=== PATIENT | female | born 1990 | race Caucasian/White ===

== ENCOUNTER 2017-12-08 06:43 | Inpatient (IN) | payer BC ==
[2017-12-08] MEDS ORDERED: CALCIUM CARBONATE PO PRN (07:45)
[2017-12-08] MEDS ORDERED: Calcium Carbonate 500 MG Tab.Chew PO PRN (07:47)
[2017-12-08] MEDS ORDERED: Misoprostol 50 MCG (1/2 of 100 MCG) Tab VAG ONE ×2 (07:55→12:15)
[2017-12-08] MEDS ORDERED: fentaNYL 100 MCG/2 ML SDV IVPUSH PRN (08:41)
[2017-12-08] MEDS ORDERED: Acetaminophen 325 MG Tab PO PRN (08:41)
[2017-12-08] MEDS ORDERED: Sodium Chloride 0.9% 10 ML Syringe FLUSH PRN (08:41)
[2017-12-08] MEDS ORDERED: Ondansetron 4 MG Tab.DIS PO PRN (08:41)
--- NOTE | 2017-12-08 08:51 | PCM.LDHP ---
L&D History of Present Illness - General Date of Service: 12/08/17 (Induction) Admit Problem/Dx: Patient Status Order with Admit Dx/Problem 12/08/17 08:41 Patient Status [ADT] Routine Admission Diagnosis/Problem Admission Diagnosis/Problem Source of Information: Patient History Limitations: Reports: No Limitations - History of Present Illness Introduction:: This 27 year old who is 40 weeks gestation presents for elective induction. Currently having contractions every 7 minutes. reactive NST. Lab: HIV neg ABO B pos GBS neg Rubella immune Timing/Duration: Reports: minutes: (7) Location, : Reports: Abdomen Severity: Mild Improves with: Reports: None Worsens with: Reports: None - Related Data Allergies/Adverse Reactions: Allergies Allergy/AdvReac Type Severity Reaction Status Date / Time kedar Allergy Rash Uncoded 12/08/17 07:30 Home Medications: Home Meds Calcium Carbonate [Tums] 1 tab PO ASDIRECTED PRN 12/08/17 [History] Voy461/FA/Omega3/Dha/Fish Oil [ Gummies] 1 tab PO DAILY 12/08/17 [ History] Past Medical History SUPPORT STAFF History: Reports: : 2 Para: 1 LMP (Approximate): (ESTER 12/08/17) Social & Family History - Tobacco Use Smoking Status *Q: Never Smoker Second Hand Smoke Exposure: No - Caffeine Use Caffeine Use: Reports: Coffee - Recreational Drug Use Recreational Drug Use: No H&P Review of Systems - Review of Systems: Review Of Systems: See Below General: Reports: No Symptoms HEENT: Reports: No Symptoms Pulmonary: Reports: No Symptoms Cardiovascular: Reports: No Symptoms Gastrointestinal: Reports: No Symptoms Genitourinary: Reports: No Symptoms Musculoskeletal: Reports: No Symptoms Skin: Reports: No Symptoms Psychiatric: Reports: No Symptoms Neurological: Reports: No Symptoms Hematologic/Lymphatic: Reports: No Symptoms Immunologic: Reports: No Symptoms L&D Exam - Exam Exam: See Below - Vital Signs Weight: 210 lb - OB Specific Contraction Intensity: Mild Movement: Active Heart Tones: Present Heart Tones per Min: 140 Heart Rate (FHR) Variability: Moderate (6-25 bmp) Presentation: Vertex Estimated Weight: 8 pounds - Allison Score Allison Score Cervix Position: Posterior Allison Score Consistency: Soft Allison Score Effacement: 51-70% Allison Score Dilation: Closed Allison Score 's Station: -3 Allison Score Total: 4 - Exam General: Alert, Oriented HEENT: PERRLA, Conjunctiva Clear, EACs Clear, EOMI, Hearing Intact, Mucosa Moist & [place], Nares Patent, Normal Nasal Septum, Posterior Pharynx Clear, TMs Clear Neck: Supple, Trachea Midline Lungs: Clear to Auscultation, Normal Respiratory Effort Cardiovascular: Regular Rate, Regular Rhythm GI/Abdominal Exam: Normal Bowel Sounds, Soft, Non-Tender, No Organomegaly, No Distention, No Abnormal Bruit, No Mass, Pelvis Stable Rectal Exam: Normal Exam, Normal Rectal Tone Genitourinary: Normal external exam, Normal bimanual exam, Normal speculum exam Back Exam: Normal Inspection, Full Range of Motion Extremities: Normal Inspection, Normal Range of Motion, Non-Tender, No Pedal Edema, Normal Capillary Refill Skin: Warm, Dry, Intact Neurological: Cranial Nerves Intact, Reflexes Equal Bilateral Psychiatric: Alert, Normal Affect, Normal Mood - Patient Data Lab Results Last 24 hrs: Laboratory Results - last 24 hr 12/08/17 Range/Units 07:53 WBC 13.2 H (4.5-11.0) K/uL RBC 4.20 (3.30-5.50) M/uL Hgb 12.8 (12.0-15.0) g/dL Hct 38.6 (36.0-48.0) % MCV 92 (80-98) fL MCH 31 (27-31) pg MCHC 33 (32-36) % Plt Count 234 (150-400) K/uL Result Diagrams: 12/08/17 07:53 - Problem List (1) Elective induction of labor planned SNOMED Code(s): 152365705 ICD Code: BUB2829 - Status: Acute Current Visit: Yes (2) SNOMED Code(s): 70060581 ICD Code: Z34.90 - ENCNTR FOR SUPRVSN OF NORMAL , UNSP, UNSP TRIMESTER Status: Acute Current Visit: Yes Qualifiers: Weeks of gestation: 40 weeks Qualified Code(s): Z3A.40 - 40 weeks gestation of Problem List Initiated/Reviewed/Updated: Yes Orders Last 24hrs: Active Orders 24 hr Category Date Time Status Patient Status [ADT] Routine ADT 12/08/17 08:41 Ordered Antiembolic Devices [RC] .Routine Care 12/08/17 08:43 Ordered Communication Order [RC] ASDIRECTED Care 12/08/17 08:41 Ordered Heart Tones [RC] PER UNIT ROUTINE Care 12/08/17 08:41 Ordered May Shower [RC] ASDIRECTED Care 12/08/17 08:41 Ordered Notify Provider Vital Signs [RC] PRN Care 12/08/17 08:41 Ordered Notify Provider [RC] PRN Care 12/08/17 08:41 Ordered Up ad Ailyn [RC] ASDIRECTED Care 12/08/17 08:41 Ordered VTE/DVT Education [RC] Click to Edit Care 12/08/17 08:43 Ordered Vital Signs [RC] PER UNIT ROUTINE Care 12/08/17 08:41 Ordered Clear Liquid Diet [DIET] Diet 12/08/17 Lunch Ordered Regular Diet [DIET] Diet 12/08/17 Breakfast Active UA W/MICROSCOPIC [URIN] Routine Lab 12/08/17 07:43 Ordered Acetaminophen [Tylenol] Med 12/08/17 08:41 Ordered 650 mg PO Q4H PRN Calcium Carbonate [Tums] Med 12/08/17 07:47 Active 500 mg PO ASDIRECTED PRN Ondansetron [Zofran ODT] Med 12/08/17 08:41 Ordered 4 mg PO Q4H PRN Oxytocin/Normal Saline [Pitocin in NS 20 Units/1,000 ML Med 12/08/17 08:45 Ordered ] 20 unit in 1,000 ml IV ONETIME Vit with Ca/FA/Iron [ Plus Iron] Med 12/08/17 09:00 Active 1 each PO DAILY Sodium Chloride 0.9% [Saline Flush] Med 12/08/17 08:41 Ordered 10 ml FLUSH ASDIRECTED PRN fentaNYL [Sublimaze] Med 12/08/17 08:41 Ordered 100 mcg IVPUSH Q1H PRN DVT/VTE Prophylaxis Reflex [OM.PC] Routine Oth 12/08/17 08:41 Ordered Saline Lock Insert [OM.PC] Routine Oth 12/08/17 08:41 Ordered Resuscitation Status Routine Resus Stat 12/08/17 08:41 Ordered Medication Orders Acetaminophen (Tylenol) 650 mg PO Q4H PRN PRN Reason: Pain (Mild 1-3) and fever Calcium Carbonate/Glycine (Tums) 500 mg PO ASDIRECTED PRN PRN Reason: HEARTBURN Fentanyl (Sublimaze) 100 mcg IVPUSH Q1H PRN PRN Reason: Pain (moderate 4-6) Oxytocin/Sodium Chloride (Pitocin In Ns 20 Units/1,000 Ml) 20 unit in 1,000 mls @ 999 mls/hr IV ONETIME ONE PRN Reason: Protocol Stop: 12/08/17 09:45 Ondansetron HCl (Zofran Odt) 4 mg PO Q4H PRN PRN Reason: Nausea/Vomiting Prenat Multivit/Foundation Relations Manager/Iron/Folic Ac ( Plus Iron) 1 each PO DAILY RADHA Sodium Chloride (Saline Flush) 10 ml FLUSH ASDIRECTED PRN PRN Reason: Keep Vein Open Assessment/Plan Comment:: 12/08/17 27 year , 40 weeks elective induction. Misoprostol 50 mcg placed at 0815 CE FT/50/-3. bishops score 4 HGB 12.8 PLT 234 requests epidural for active labor Plan reassess at noon monitor for signs for labor up and about after required monitoring finished.
[2017-12-08] MEDS ORDERED: FISH OIL PO SCH (09:00)
[2017-12-08] MEDS ORDERED: OMEGA3 PO SCH (09:00)
[2017-12-08] MEDS ORDERED: DHA PO SCH (09:00)
[2017-12-08] MEDS ORDERED: [UNRECOGNIZED DRUG - OTHER] PO SCH (09:00)
[2017-12-08] MEDS: Prenatal Multivitamin with Calcium/Folic Acid/Iron Tab PO SCH (11:01)
--- NOTE | 2017-12-08 12:29 | PCM.PNLD ---
Labor Progress Note - VS & Meds Vital Signs: Last Vital Signs Temp 98.0 F 12/08/17 11:00 Pulse 87 12/08/17 11:00 Resp 16 12/08/17 11:00 BP 118/76 12/08/17 11:00 Pulse Ox 95 12/08/17 11:00 Active Medications: Current Medications Acetaminophen (Tylenol) 650 mg PO Q4H PRN PRN Reason: Pain (Mild 1-3) and fever Calcium Carbonate/Glycine (Tums) 500 mg PO ASDIRECTED PRN PRN Reason: HEARTBURN Fentanyl (Sublimaze) 100 mcg IVPUSH Q1H PRN PRN Reason: Pain (moderate 4-6) Ondansetron HCl (Zofran Odt) 4 mg PO Q4H PRN PRN Reason: Nausea/Vomiting Prenat Multivit/Wind Energy Engineer/Iron/Folic Ac ( Plus Iron) 1 each PO DAILY RADHA Last Admin: 12/08/17 11:01 Dose: 1 each Sodium Chloride (Saline Flush) 10 ml FLUSH ASDIRECTED PRN PRN Reason: Keep Vein Open Discontinued Medications Oxytocin/Sodium Chloride (Pitocin In Ns 20 Units/1,000 Ml) 20 unit in 1,000 mls @ 999 mls/hr IV ONETIME ONE PRN Reason: Protocol Stop: 12/08/17 09:45 Misoprostol (Cytotec) 50 mcg VAG ONETIME ONE Stop: 12/08/17 07:56 Last Admin: 12/08/17 08:11 Dose: 50 mcg Misoprostol (Cytotec) 50 mcg VAG ONETIME ONE Stop: 12/08/17 12:16 - Uterine Contractions Uterine Monitoring Mode: External [place] Contraction Frequency (min): 2--5 Contraction Duration (sec): 50-70 Contraction Intensity: Mild Uterine Resting Tone: Soft - Monitoring Monitor Mode: External Ultrasound Heart Rate (FHR) Per Doppler: 140 Heart Rate (FHR) Variability: Moderate (6-25 bmp) Accelerations: Present, 15x15 Decelerations: None Strip Review: Category I - Vaginal Exam Dilation (cm): 3 Effacement (Percent): 50 Station: Ballotable Cervical Position: Midposition Sterile Vaginal Exam Performed By: Sheree Montana Vaginal Exam Comment: cervixcal change since this morning, bloody show - Labor Progress (Free Text) Labor Progress: tad regularly. CE: /-1 Bulging bag present. latent labor. monitor for active labor up and about Arom later this afternoon Plan for vaginal delivery
[2017-12-08] MEDS ORDERED: Lactated Ringers 1,000 ML IV SCH ×2 (14:30→15:35)
--- NOTE | 2017-12-08 15:48 | PCM.PNLD ---
Labor Progress Note - VS & Meds Vital Signs: Last Vital Signs Temp 98.6 F 12/08/17 12:30 Pulse 78 12/08/17 15:29 Resp 16 12/08/17 12:30 BP 129/71 12/08/17 12:30 Pulse Ox 98 12/08/17 15:29 Active Medications: Current Medications Acetaminophen (Tylenol) 650 mg PO Q4H PRN PRN Reason: Pain (Mild 1-3) and fever Calcium Carbonate/Glycine (Tums) 500 mg PO ASDIRECTED PRN PRN Reason: HEARTBURN Fentanyl (Sublimaze) 100 mcg IVPUSH Q1H PRN PRN Reason: Pain (moderate 4-6) Lactated Ringer's (Ringers, Lactated) 1,000 mls @ 999 mls/hr IV BOLUS [facility] Last Admin: 12/08/17 14:35 Dose: 999 mls/hr Lactated Ringer's (Ringers, Lactated) 1,000 mls @ 125 mls/hr IV ASDIRECTED [facility] Last Admin: 12/08/17 15:36 Dose: 125 mls/hr Ondansetron HCl (Zofran Odt) 4 mg PO Q4H PRN PRN Reason: Nausea/Vomiting Prenat Multivit/Mower/Iron/Folic Ac ( Plus Iron) 1 each PO DAILY [facility] Last Admin: 12/08/17 11:01 Dose: 1 each Sodium Chloride (Saline Flush) 10 ml FLUSH ASDIRECTED PRN PRN Reason: Keep Vein Open Discontinued Medications Oxytocin/Sodium Chloride (Pitocin In Ns 20 Units/1,000 Ml) 20 unit in 1,000 mls @ 999 mls/hr IV ONETIME ONE PRN Reason: Protocol Stop: 12/08/17 09:45 Misoprostol (Cytotec) 50 mcg VAG ONETIME ONE Stop: 12/08/17 07:56 Last Admin: 12/08/17 08:11 Dose: 50 mcg Misoprostol (Cytotec) 50 mcg VAG ONETIME ONE Stop: 12/08/17 12:16 - Uterine Contractions Uterine Monitoring Mode: External [place] Contraction Frequency (min): 1.5-3.5 Contraction Duration (sec): 50-100 Contraction Intensity: Moderate Uterine Resting Tone: Soft - Monitoring Monitor Mode: External Ultrasound Heart Rate (FHR) Per Doppler: 140 Heart Rate (FHR) Variability: Moderate (6-25 bmp) Accelerations: Present, 15x15 Decelerations: None Strip Review: Category I - Vaginal Exam Dilation (cm): 4 Effacement (Percent): 75 Station: Ballotable Cervical Position: Anterior Sterile Vaginal Exam Performed By: Sheree Montana Vaginal Exam Comment: AROM 75/0 large amount clear fluid - Labor Progress (Free Text) Labor Progress: 12/08/17 tad every 2-3 minutes. doing well Epidural for pain management planning vaginal delivery
[2017-12-08] MEDS ORDERED: ePHEDrine 50 MG/ML SDV IVPUSH ONE (16:08)
[2017-12-08] MEDS ORDERED: Lactated Ringers 1,000 ML IV ONE (16:08)
[2017-12-08] MEDS ORDERED: Ropivacaine 100 ML ONE (17:27)
[2017-12-08] MEDS ORDERED: Naloxone 0.4 MG/ML SDV IVPUSH PRN (17:36)
[2017-12-08] MEDS ORDERED: ePHEDrine 50 MG/ML SDV IV PRN (17:36)
[2017-12-08] MEDS ORDERED: Ropivacaine 100 ML EPIDUR SCH (17:36)
--- NOTE | 2017-12-08 19:38 | ANES ---
DATE OF SERVICE: 12/08/2017 INDICATION: Anna is a 27-year-old female patient of Stefany Montana in our OB unit. She is in prolonged stage II labor and not failure to progress. #[id number]. Please refer to Stefany's note for diagnosis as well. DESCRIPTION OF THE PROCEDURE: Upon arrival, I was assessing the patient for labor epidural placement, found no contraindication in lab work and the patient's history. I discussed with her risks and benefits of the procedure. She was okay to proceed and consent was received. I had her seated at the edge of the bed. Betadine prep x3 to lumbar region. Sterile drape was placed. 1% lidocaine skin wheal as well as deep at the L3-4 region. A 17- gauge Touhy was placed to loss of resistance with ease. Negative CSF, negative heme, negative paresthesia. I inserted catheter to 13 cm and it was secured on her back. I placed a test dose of 3 mL of 1.5% lidocaine with 1:200,000 epinephrine. She tolerated that quite well. Please refer to nursing notes for vital signs and neuro status, which were unchanged and within normal limits. She had negative sequelae from test dose. I then dosed her with 12 mL of 0.2% ropivacaine and began infusion of that same 12 mL of ropivacaine an hour, again continued, and she tolerated the procedure quite well. I reported off to nurse as well as Stefany Montana. Spenser Harris CRNA /[id number]
[2017-12-08] MEDS ORDERED: Ibuprofen 200 MG Tab, 24 Tab Bulk Bottle PO PRN (20:22)
[2017-12-08] MEDS ORDERED: Acetaminophen 325 MG Tab, 50 Tab Bulk Bottle PO PRN (20:22)
[2017-12-08] MEDS ORDERED: Lanolin 100% Cream 40 GM Tube TOP PRN (20:22)
[2017-12-08] MEDS ORDERED: Acetaminophen/Codeine 300-30 MG Tab PO PRN (20:22)
--- NOTE | 2017-12-08 20:31 | PCM.DEL ---
L & D Note - General Info Date of Service: 12/08/17 Mother's Due Date: 12/08/17 - Delivery Note Labor: Induced by ARM Cervical Ripening Method: Misoprostil Delivery Outcome: Livebirth Delivery Method: Spontaneous Vaginal Delivery-Single Infant Delivery Mode: Spontaneous Presentation: Left Occiput Anterior (DARNELL) Nuchal Cord: Present (one time) Anesthesia Type: Epidural Amniotic Fluid Description: Clear Episiotomy Type: None Laceration: None Placenta: Intact, Expressed Cord: 3 Vessels Estimated Blood Loss: 0 Resuscitation Needed: No : Stimulated, Warmed, Gardner Used, Warmer Used Score 1 min: 8 Score 5 min: 9 Delivery Comments (Free Text/Narrative):: G2 now P2 27 year old female at 40w 0d delivered healthy baby girl DARNELL at 1959 via with nuchal cord times 1 with 3 cord vessel. Placenta delivered with uterine massage, pitocin, and gentle cord traction--intact. Baby girl with APGARs of 8 and 9, off for color, weighing 7lb 9oz and measuring 18.9inches. No lacerations of cervic, vagina, rectum, or perineum and no need for repair. EBL: 0. Induction Criteria - Allison Score Allison Score Dilation: 1-2 cm Allison Score Effacement: 40-50% Allison Score 's Station: -3 Allison Score Consistency: Medium Allison Score Cervix Position: Posterior Allison Score Total: 3 Allison Score Presenting Part: Reports: Cephalic - Induction Gestational Age >/= 39 wks: Yes Estimated Pelvis: Reports: Adequate Reassuring Monitoring Strip: Yes Absence of Tachy Systole: Yes - General Info Date of Service: 12/08/17 Admission Dx/Problem (Free Text): Patient Status Order with Admit Dx/Problem 12/08/17 08:41 Patient Status [ADT] Routine Admission Diagnosis/Problem Admission Diagnosis/Problem 20:32 Spontaneous vaginal delivery Functional Status: Reports: Pain Controlled - Review of Systems General: Reports: No Symptoms HEENT: Reports: No Symptoms Pulmonary: Reports: No Symptoms Cardiovascular: Reports: No Symptoms Gastrointestinal: Reports: No Symptoms Genitourinary: Reports: No Symptoms Musculoskeletal: Reports: Other (back pressure katey with contractions) Skin: Reports: No Symptoms Neurological: Reports: No Symptoms Psychiatric: Reports: No Symptoms - Patient Data Vitals - Most Recent: Last Vital Signs Temp 96.0 F 12/08/17 16:20 Pulse 79 12/08/17 17:58 Resp 18 12/08/17 17:47 BP 114/62 12/08/17 17:47 Pulse Ox 97 12/08/17 17:58 Weight - Most Recent: 209 lb 15.986 oz I&O - Last 24 Hours: Intake & Output 12/08/17 12/08/17 12/08/17 06:59 14:59 22:59 Intake Total 1000 Balance 1000 Lab Results Last 24 Hours: Laboratory Results - last 24 hr 12/08/17 12/08/17 12/08/17 Range/Units 07:43 07:53 13:04 WBC 13.2 H (4.5-11.0) K/uL RBC 4.20 (3.30-5.50) M/uL Hgb 12.8 (12.0-15.0) g/dL Hct 38.6 (36.0-48.0) % MCV 92 (80-98) fL MCH 31 (27-31) pg MCHC 33 (32-36) % Plt Count 234 (150-400) K/uL Urine Color Yellow Urine Appearance Slightly cloudy Urine pH 7.0 (4.5-8.0) Ur Specific [place] 1.010 (1.008-1.030) Urine Protein Negative (NEGATIVE) mg/dL Urine Glucose (UA) Normal (NEGATIVE) mg/dL Urine Ketones Negative (NEGATIVE) mg/dL Urine Occult Blood Large (NEGATIVE) Urine Nitrite Negative (NEGATIVE) Urine Bilirubin Negative (NEGATIVE) Urine Urobilinogen Normal (NORMAL) mg/dL Ur Leukocyte Esterase Negative (NEGATIVE) Urine RBC 5-10 H (0-5) Urine WBC 0-5 (0-5) Ur Epithelial Cells Moderate Amorphous Sediment Not seen Urine Bacteria Few Urine Mucus Not seen Urine Opiates Screen Negative (NEGATIVE) Ur Oxycodone Screen Negative (NEGATIVE) Urine Methadone Screen Negative (NEGATIVE) Ur Propoxyphene Screen Negative (NEGATIVE) Ur Barbiturates Screen Negative (NEGATIVE) Ur Tricyclics Screen Negative (NEGATIVE) Ur Phencyclidine Scrn Negative (NEGATIVE) Ur Amphetamine Screen Negative (NEGATIVE) U Methamphetamines Scrn Negative (NEGATIVE) Urine MDMA Screen Negative (NEGATIVE) U Benzodiazepines Scrn Negative (NEGATIVE) U Cocaine Metab Screen Negative (NEGATIVE) U Marijuana (THC) Screen Negative (NEGATIVE) Med Orders - Current: Current Medications Acetaminophen (Tylenol) 650 mg PO Q4H PRN PRN Reason: Pain (Mild 1-3) and fever Acetaminophen (Tylenol Bulk Bottle) 325 mg PO Q4H PRN PRN Reason: Pain Calcium Carbonate/Glycine (Tums) 500 mg PO ASDIRECTED PRN PRN Reason: HEARTBURN Ephedrine Sulfate (Ephedrine Sulfate) 5 - 10 mg IV ASDIRECTED PRN PRN Reason: Systolic BP less than 100 Fentanyl (Sublimaze) 100 mcg IVPUSH Q1H PRN PRN Reason: Pain (moderate 4-6) Lactated Ringer's (Ringers, Lactated) 1,000 mls @ 999 mls/hr IV BOLUS [facility] Last Admin: 12/08/17 14:35 Dose: 999 mls/hr Lactated Ringer's (Ringers, Lactated) 1,000 mls @ 125 mls/hr IV ASDIRECTED [facility] Last Admin: 12/08/17 15:36 Dose: 125 mls/hr Ropivacaine (Naropin 0.2%) 100 mls @ 0 mls/hr EPIDUR ASDIRECTED RADHA; Titrate PRN Reason: Protocol Naloxone HCl 0.4 mg/ Sodium (Chloride) 1,001 mls @ 0 mls/hr IV ASDIRECTED PRN; Protocol; Titrate PRN Reason: ITCHING Naloxone HCl (Narcan) 0.1 mg IVPUSH Q5M PRN PRN Reason: IF RESP RATE LESS THAN 6 Ondansetron HCl (Zofran Odt) 4 mg PO Q4H PRN PRN Reason: Nausea/Vomiting Prenat Multivit/Relocation Commissioner/Iron/Folic Ac ( Plus Iron) 1 each PO DAILY [facility] Last Admin: 12/08/17 11:01 Dose: 1 each Sodium Chloride (Saline Flush) 10 ml FLUSH ASDIRECTED PRN PRN Reason: Keep Vein Open Discontinued Medications Ephedrine Sulfate (Ephedrine Sulfate) 5 mg IVPUSH ONETIME ONE Stop: 12/08/17 16:09 Oxytocin/Sodium Chloride (Pitocin In Ns 20 Units/1,000 Ml) 20 unit in 1,000 mls @ 999 mls/hr IV ONETIME ONE PRN Reason: Protocol Stop: 12/08/17 09:45 Lactated Ringer's (Ringers, Lactated) 1,000 mls @ 999 mls/hr IV .BOLUS ONE Stop: 12/08/17 17:08 Ropivacaine (Naropin 0.2%) Confirm Administered Dose 100 mls @ as directed .ROUTE .STK-MED ONE Stop: 12/08/17 17:28 Oxytocin/Sodium Chloride (Pitocin In Ns 20 Units/1,000 Ml) Confirm Administered Dose 20 unit in 1,000 mls @ as directed .ROUTE .STK-MED ONE Stop: 12/08/17 19:55 Misoprostol (Cytotec) 50 mcg VAG ONETIME ONE Stop: 12/08/17 07:56 Last Admin: 12/08/17 08:11 Dose: 50 mcg Misoprostol (Cytotec) 50 mcg VAG ONETIME ONE Stop: 12/08/17 12:16 - Exam General: Alert, Oriented, No Acute Distress HEENT: EOMI, Mucous Membr. Moist/[place] Neck: Supple, Trachea Midline Lungs: Clear to Auscultation, Normal Respiratory Effort Cardiovascular: Regular Rate, Regular Rhythm, No Murmurs GI/Abdominal Exam: Normal Bowel Sounds, No Distention (Female) Exam: Normal External Exam, Normal Bimanual Exam Back Exam: Normal Inspection, Other (epidural in place) Extremities: Normal Inspection, No Pedal Edema - Problem List & Annotations (1) Spontaneous vaginal delivery SNOMED Code(s): 24933117 Code(s): O80 - ENCOUNTER FOR FULL-TERM UNCOMPLICATED DELIVERY Status: Acute Current Visit: Yes - Problem List Review Problem List Initiated/Reviewed/Updated: Yes - Plan Plan:: 12/08/17 27 year , 40 weeks elective induction. Misoprostol 50 mcg placed at 0815 CE FT/50/-3. bishops score 4 HGB 12.8 PLT 234 requests epidural for active labor Plan reassess at noon monitor for signs for labor up and about after required monitoring finished. 12/08/17 at 20:35 27yo , 40weeks; received misoprostil for cervical ripening, AROM at 1532 with clear amniotic fluid; LR bolus complete prior to placement of epidural at 16:45; normal spontaneous vaginal delivery (DARNELL) with nuchal cord times one, no other complication; baby girl with apgars of 8 and 9 doing well now, on mom's chest; Placenta delivered intact with uterine massage, pitocin, and gentle cord traction Plan: Transfer to post- room Routine cares including vitals, encourage ambulation, adequate pain relief as needed, support breast feeding
[2017-12-09] MEDS: Prenatal Multivitamin with Calcium/Folic Acid/Iron Tab PO SCH (08:50)
--- NOTE | 2017-12-09 12:00 | PCM.PNPP ---
- General Info Date of Service: 12/09/17 (Birthday plus one) Admission Dx/Problem (Free Text): Patient Status Order with Admit Dx/Problem 12/08/17 08:41 Patient Status [ADT] Routine Admission Diagnosis/Problem Admission Diagnosis/Problem 20:32 Spontaneous vaginal delivery Functional Status: Reports: Pain Controlled - Review of Systems General: Reports: No Symptoms HEENT: Reports: No Symptoms Pulmonary: Reports: No Symptoms Cardiovascular: Reports: No Symptoms Gastrointestinal: Reports: No Symptoms Genitourinary: Reports: No Symptoms Musculoskeletal: Reports: No Symptoms Skin: Reports: No Symptoms Neurological: Reports: No Symptoms Psychiatric: Reports: No Symptoms - Patient Data Vital Signs - Most Recent: Last Vital Signs Temp 95.9 F 12/09/17 07:26 Pulse 70 12/09/17 07:26 Resp 16 12/09/17 07:26 BP 95/60 12/09/17 07:26 Pulse Ox 98 12/09/17 07:26 Weight - Most Recent: 209 lb 15.986 oz I&O - Last 24 Hours: Intake & Output 12/08/17 12/09/17 12/09/17 22:59 06:59 14:59 Intake Total 600 2972 900 Output Total 200 Balance 400 2972 900 Lab Results - Last 24 Hours: Laboratory Results - last 24 hr 12/08/17 12/09/17 Range/Units 13:04 05:40 WBC 12.8 H (4.5-11.0) K/uL RBC 4.03 (3.30-5.50) M/uL Hgb 12.5 (12.0-15.0) g/dL Hct 37.3 (36.0-48.0) % MCV 93 (80-98) fL MCH 31 (27-31) pg MCHC 34 (32-36) % Plt Count 211 (150-400) K/uL Neut % (Auto) 68 H (36-66) % Lymph % (Auto) 22 L (24-44) % [place] % (Auto) 9 H (2-6) % Eos % (Auto) 1 L (2-4) % Baso % (Auto) 0 (0-1) % Urine Opiates Screen Negative (NEGATIVE) Ur Oxycodone Screen Negative (NEGATIVE) Urine Methadone Screen Negative (NEGATIVE) Ur Propoxyphene Screen Negative (NEGATIVE) Ur Barbiturates Screen Negative (NEGATIVE) Ur Tricyclics Screen Negative (NEGATIVE) Ur Phencyclidine Scrn Negative (NEGATIVE) Ur Amphetamine Screen Negative (NEGATIVE) U Methamphetamines Scrn Negative (NEGATIVE) Urine MDMA Screen Negative (NEGATIVE) U Benzodiazepines Scrn Negative (NEGATIVE) U Cocaine Metab Screen Negative (NEGATIVE) U Marijuana (THC) Screen Negative (NEGATIVE) Med Orders - Current: Current Medications Acetaminophen (Tylenol Bulk Bottle) 325 - 650 mg PO Q4H PRN PRN Reason: Pain Last Admin: 12/08/17 22:45 Dose: 1 bottle Acetaminophen/Codeine Phosphate (Tylenol With Codeine No.3 300mg/30mg) 1 tab PO Q4H PRN PRN Reason: Pain (moderate 4-6) Calcium Carbonate/Glycine (Tums) 500 mg PO ASDIRECTED PRN PRN Reason: HEARTBURN Emollient Ointment (Lansinoh Hpa) 0 gm TOP ASDIRECTED PRN PRN Reason: Sore Nipples Ephedrine Sulfate (Ephedrine Sulfate) 5 - 10 mg IV ASDIRECTED PRN PRN Reason: Systolic BP less than 100 Fentanyl (Sublimaze) 100 mcg IVPUSH Q1H PRN PRN Reason: Pain (moderate 4-6) Lactated Ringer's (Ringers, Lactated) 1,000 mls @ 999 mls/hr IV BOLUS [facility] Last Admin: 12/08/17 14:35 Dose: 999 mls/hr Lactated Ringer's (Ringers, Lactated) 1,000 mls @ 125 mls/hr IV ASDIRECTED [facility] Last Admin: 12/08/17 15:36 Dose: 125 mls/hr Ropivacaine (Naropin 0.2%) 100 mls @ 0 mls/hr EPIDUR ASDIRECTED RADHA; Titrate PRN Reason: Protocol Naloxone HCl 0.4 mg/ Sodium (Chloride) 1,001 mls @ 0 mls/hr IV ASDIRECTED PRN; Protocol; Titrate PRN Reason: ITCHING Ibuprofen (Motrin Bulk Bottle) 600 mg PO Q6H PRN PRN Reason: Pain Last Admin: 12/08/17 22:45 Dose: 1 bottle Naloxone HCl (Narcan) 0.1 mg IVPUSH Q5M PRN PRN Reason: IF RESP RATE LESS THAN 6 Ondansetron HCl (Zofran Odt) 4 mg PO Q4H PRN PRN Reason: Nausea/Vomiting Prenat Multivit/Boyle/Iron/Folic Ac ( Plus Iron) 1 each PO DAILY RADHA Last Admin: 12/09/17 08:50 Dose: 1 each Sodium Chloride (Saline Flush) 10 ml FLUSH ASDIRECTED PRN PRN Reason: Keep Vein Open Discontinued Medications Acetaminophen (Tylenol) 650 mg PO Q4H PRN PRN Reason: Pain (Mild 1-3) and fever Ephedrine Sulfate (Ephedrine Sulfate) 5 mg IVPUSH ONETIME ONE Stop: 12/08/17 16:09 Last Admin: 12/08/17 21:44 Dose: Not Given Oxytocin/Sodium Chloride (Pitocin In Ns 20 Units/1,000 Ml) 20 unit in 1,000 mls @ 999 mls/hr IV ONETIME ONE PRN Reason: Protocol Stop: 12/08/17 09:45 Last Titration: 12/08/17 20:30 Dose: 125 mls/hr, 125 mls/hr Lactated Ringer's (Ringers, Lactated) 1,000 mls @ 999 mls/hr IV .BOLUS ONE Stop: 12/08/17 17:08 Last Infusion: 12/08/17 19:00 Dose: Infused Ropivacaine (Naropin 0.2%) Confirm Administered Dose 100 mls @ as directed .ROUTE .STK-MED ONE Stop: 12/08/17 17:28 Oxytocin/Sodium Chloride (Pitocin In Ns 20 Units/1,000 Ml) Confirm Administered Dose 20 unit in 1,000 mls @ as directed .ROUTE .STK-MED ONE Stop: 12/08/17 19:55 Last Admin: 12/08/17 21:34 Dose: Not Given Misoprostol (Cytotec) 50 mcg VAG ONETIME ONE Stop: 12/08/17 07:56 Last Admin: 12/08/17 08:11 Dose: 50 mcg Misoprostol (Cytotec) 50 mcg VAG ONETIME ONE Stop: 12/08/17 12:16 Last Admin: 12/09/17 05:06 Dose: Not Given - Interaction Disposition, : [place] in Room with Family Infant Interaction: Holding Feeding: Breastfed Infant; Nursed Well Support Person: - Recovery Exam Fundal Tone: Firm Fundal Level: At Umbilicus Fundal Placement: Midline Lochia Amount: Moderate Lochia Color: Rubra/Red Perineum Description: Intact, Minimal Bruising/Swelling Episiotomy/Laceration: None Bladder Status: Voiding Urinary Elimination: Voided - Exam General: Alert, Oriented HEENT: Pupils Equal Neck: Supple Lungs: Clear to Auscultation, Normal Respiratory Effort Cardiovascular: Regular Rate, Regular Rhythm GI/Abdominal Exam: Normal Bowel Sounds, Soft, Non-Tender, No Organomegaly, No Distention, No Abnormal Bruit, No Mass, Pelvis Stable Extremities: Normal Inspection, Normal Range of Motion, Non-Tender, No Pedal Edema, Normal Capillary Refill Skin: Warm, Dry, Intact Wound/Incisions: Healing Well Neurological: No New Focal Deficit Psy/Mental Status: Alert, Normal Affect, Normal Mood - Problem List & Annotations (1) Elective induction of labor planned SNOMED Code(s): 081785879 Code(s): [id number] - Status: Acute Current Visit: Yes (2) SNOMED Code(s): 92983660 Code(s): Z34.90 - ENCNTR FOR SUPRVSN OF NORMAL , UNSP, UNSP TRIMESTER Status: Acute Current Visit: Yes Qualifiers: Weeks of gestation: 40 weeks Qualified Code(s): Z3A.40 - 40 weeks gestation of - Problem List Review Problem List Initiated/Reviewed/Updated: Yes - My Orders Last 24 Hours: My Active Orders 12/08/17 14:30 Lactated Ringers [Ringers, Lactated] 1,000 ml IV BOLUS 12/08/17 15:35 Lactated Ringers [Ringers, Lactated] 1,000 ml IV ASDIRECTED 12/08/17 16:00 Insert Davis Catheter [Insert Urinary Catheter] [OM.PC] Q24H 12/08/17 16:08 Epidural Catheter Management [OM.PC] Urgent 12/08/17 17:36 Naloxone [Narcan] 0.1 mg IVPUSH Q5M PRN Naloxone [Narcan] 0.4 mg Sodium Chloride 0.9% [Normal Saline] 1,000 ml IV ASDIRECTED Ropivacaine [Naropin 0.2%] 100 ml EPIDUR ASDIRECTED ePHEDrine [ePHEDrine Sulfate] 5 - 10 mg IV ASDIRECTED PRN 12/08/17 20:22 Patient Status [ADT] Routine Acetaminophen [Tylenol Bulk Bottle] 325 - 650 mg PO Q4H PRN Acetaminophen/Codeine [Tylenol with Codeine No.3 300MG/30MG] 1 tab PO Q4H PRN Ibuprofen [Motrin Bulk Bottle] 600 mg PO Q6H PRN Lanolin [Lansinoh HPA] 0 gm TOP ASDIRECTED PRN Assess Lochia [WOMSER] Per Unit Routine Assess Uterine Involution [WOMSER] Per Unit Routine 12/08/17 20:24 Perineal Care [OM.PC] Per Unit Routine Sitz Bath [OM.PC] Per Unit Routine 12/09/17 Breakfast Regular Diet [DIET] - Assessment Assessment:: 12/09/17 27 yr old G2 now P2 without complications , no problems HGB 12.5 this morning Wants to go home later today - Plan Plan:: 12/08/17 27 year , 40 weeks elective induction. Misoprostol 50 mcg placed at 0815 CE FT/50/-3. bishops score 4 HGB 12.8 PLT 234 requests epidural for active labor Plan reassess at noon monitor for signs for labor up and about after required monitoring finished. 12/08/17 at 20:35 27yo , 40weeks; received misoprostil for cervical ripening, AROM at 1532 with clear amniotic fluid; LR bolus complete prior to placement of epidural at 16:45; normal spontaneous vaginal delivery (DARNELL) with nuchal cord times one, no other complication; baby girl with apgars of 8 and 9 doing well now, on mom's chest; Placenta delivered intact with uterine massage, pitocin, and gentle cord traction Plan: Transfer to post- room Routine cares including vitals, encourage ambulation, adequate pain relief as needed, support breast feeding 12/09/17 Home today See me in 6 weeks for a post visit
== END 2017-12-09 20:32 | disposition home or self-care (01) | DRG 560 ==
LOC: JP.OB 06:43 → OBSVTOIN 19:59 → JP.MS 12-09 00:30
PROVIDERS: ADMIT Nurse Practitioner Family; ATTEND Nurse Practitioner Family
PROC: 10E0XZZ Delivery of Products of Conception, External Approach (ICD-10-PCS; principal; 2017-12-08)
PROC: 10907ZC Drainage of Amniotic Fluid, Therapeutic from Products of Conception, Via Natural or Artificial Opening (ICD-10-PCS; 2017-12-08)
PROC: 3E0P7VZ Introduction of Hormone into Female Reproductive, Via Natural or Artificial Opening (ICD-10-PCS; 2017-12-08)
PROC: 3E033VJ Introduction of Other Hormone into Peripheral Vein, Percutaneous Approach (ICD-10-PCS; 2017-12-08)
PROC: 00HU33Z Insertion of Infusion Device into Spinal Canal, Percutaneous Approach (ICD-10-PCS; 2017-12-08)
DX: O69.81X0 Labor and delivery complicated by cord around neck, without compression, not applicable or unspecified (principal); Z3A.40 40 weeks gestation of pregnancy; Z37.0 Single live birth; Z91.048 Other nonmedicinal substance allergy status
CPT/HCPCS: 36415; 51702; 59409; 80305; 81001; 85025; 85027; A9270-GY; J2590; J2795; J7120